=== PATIENT | male | born 1955 | race Caucasian/White ===

== ENCOUNTER 2023-05-28 17:00 | Outpatient (CLI) | payer MEDICARE, BC | END 2023-05-28 17:01 | disposition home or self-care (01) | LOC: SLEEPLAB 17:00 | PROVIDERS: ATTEND Nurse Practitioner Family | DX: G47.33 Obstructive sleep apnea (adult) (pediatric) (principal); R53.83 Other fatigue; E11.9 Type 2 diabetes mellitus without complications; E66.9 Obesity, unspecified; R06.83 Snoring; I25.10 Atherosclerotic heart disease of native coronary artery without angina pectoris; I10 Essential (primary) hypertension; E78.5 Hyperlipidemia, unspecified; M10.9 Gout, unspecified; M25.569 Pain in unspecified knee; J30.9 Allergic rhinitis, unspecified; J01.90 Acute sinusitis, unspecified; H65.90 Unspecified nonsuppurative otitis media, unspecified ear; Z68.41 Body mass index [BMI] 40.0-44.9, adult | CPT/HCPCS: 95810 ==

== ENCOUNTER 2023-06-26 17:00 | Outpatient (CLI) | payer MEDICARE, BC | END 2023-06-26 17:01 | disposition home or self-care (01) | LOC: SLEEPLAB 17:00 | PROVIDERS: ATTEND Nurse Practitioner Family | DX: G47.33 Obstructive sleep apnea (adult) (pediatric) (principal); R53.83 Other fatigue; E11.9 Type 2 diabetes mellitus without complications; E66.9 Obesity, unspecified; R06.83 Snoring; I25.10 Atherosclerotic heart disease of native coronary artery without angina pectoris; I10 Essential (primary) hypertension; G47.10 Hypersomnia, unspecified; Z68.41 Body mass index [BMI] 40.0-44.9, adult | CPT/HCPCS: 95811 ==

== ENCOUNTER 2024-06-26 13:14 | Outpatient (CLI) | payer MEDICARE, BC | END 2024-06-26 13:15 | disposition home or self-care (01) | LOC: CT 13:14 | PROVIDERS: ATTEND Internal Medicine Hematology & Oncology | DX: K75.81 Nonalcoholic steatohepatitis (NASH) (principal); R16.1 Splenomegaly, not elsewhere classified; D69.6 Thrombocytopenia, unspecified; K80.20 Calculus of gallbladder without cholecystitis without obstruction; K76.89 Other specified diseases of liver; N28.1 Cyst of kidney, acquired | CPT/HCPCS: 74177 ==